=== PATIENT | female | born 1990 | race Hispanic/Latino ===

== ENCOUNTER 2018-09-16 12:49 | Emergency (ER) | payer BC ==
[2018-09-16 13:37] LABS: Urine Blood NEGATIVE (NEG); Urine Glucose NEGATIVE (NEG); Urine Protein NEGATIVE (NEG); Urine pH 7.5 (5.0-7.0)
[2018-09-16] MEDS ORDERED: ONDANSETRON 4 MG/2 ML VIAL ONE (13:55)
[2018-09-16] MEDS ORDERED: NA CHLORIDE 0.9% 1,000 ML ONE (13:55)
[2018-09-16] MEDS ORDERED: KETOROLAC 30 MG/ML INJ ONE (13:55)
[2018-09-16 14:30] LABS: Absolute Lymphocytes (CBC) 1.6 K/uL (0.7-4.9); Absolute Monocytes 0.4 K/uL (0.1-1.3); Absolute Neutrophil 5.6 K/uL (1.8-8.0); Basophils % 0.3 % (0-1.3); Eosinophils % 1.1 % (0-4.4); Hematocrit 43.4 % (36.0-45.0); Monocytes % 5.3 % (3.3-12.3); RBC Red Blood Cell Count 4.91 M/uL (3.86-4.86)
[2018-09-16 14:47] LABS: ALT/SGPT 19 U/L (12-78); AST/SGOT 10 U/L (15-37); Alkaline Phosphatase 102 U/L (45-117); BUN Blood Urea Nitrogen 12 mg/dL (7-18); Bicarbonate 30 mmol/L (21-32); Bilirubin Direct < 0.1 mg/dL (0-0.2); Bilirubin Total 0.2 mg/dL (0.2-1.0); Glucose Level 99 mg/dL (74-106); Lipase 130 U/L (73-393); Potassium 3.4 mmol/L (3.5-5.1); Protein, Total 8.4 g/dL (6.4-8.2); Sodium Level 139 mmol/L (136-145)
[2018-09-16] MEDS ORDERED: MORPHINE 4 MG/ML SYR ONE (15:13)
--- NOTE | 2018-09-16 15:31 | RAD REPORT ---
EXAM DESCRIPTION: CTAbdomen Pelvis W Contrast - 09/16/2018 3:23 pm CLINICAL HISTORY: Abdominal pain. iv contrast only;Abd pain COMPARISON: CT ABD PELVIS W CONTRAST dated 03/14/2013; CT ABD PELVIS W CONTRAST dated 03/12/2013; CT A BD PELVIS W CONTRAST dated 03/09/2013; CT ABD PELVIS W CONTRAST dated 02/12/2013 TECHNIQUE: Biphasic CT imaging of the abdomen and pelvis was performed with 100 ml non-ionic IV cont rast. All CT scans are performed using dose optimization technique as appropriate and may include automated exposure control or mA/KV adjustment according to patient size. FINDINGS: The lung bases are clear.Cholecystectomy clips. The liver, spleen, pancreas, adrenal glands and kidneys are within normal limits. No bowel obstruction, free air, intra-abdominal free fluid or abscess. The appendix is not identifie d as a discrete structure, however, no secondary findings of appendicitis are identified. No eviden ce of significant lymphadenopathy. No suspicious bony findings. Mild pelvic free fluid seen, likely physiologic. IMPRESSION: No acute intra-abdominal or pelvic finding.
--- NOTE | 2018-09-16 15:57 | ER ---
Nurse's Notes [facility] Name: Janeth Dior Age: 28 yrs Sex: Female : 1990 Arrival Date: 09/16/2018 Time: 12:51 Bed 27 Private MD: Keith Brock Diagnosis: Upper abdominal pain, unspecified Presentation: 09/16 12:52 Presenting complaint: Patient states: upper abd pain that radiates the mid back area. sv Back pain started a week ago and abd pain started today. Transition of care: patient was not received from another setting of care. Onset of symptoms was September 09, 2018. Care prior to arrival: None. 12:52 Method Of Arrival: Ambulatory sv 12:52 Acuity: KAM 3 sv 13:22 Risk Assessment: Do you want to hurt yourself or someone else? Patient reports no ca1 desire to harm self or others. Initial Sepsis Screen: Does the patient meet any 2 criteria? No. Patient's initial sepsis screen is negative. Does the patient have a suspected source of infection? No. Patient's initial sepsis screen is negative. Triage Assessment: 12:54 General: Appears in no apparent distress. uncomfortable, well developed, Behavior is sv calm, cooperative, appropriate for age. Pain: Complains of pain in right upper quadrant and left upper quadrant Pain radiates to mid back area Pain currently is 6 out of 10 on a pain scale. Quality of pain is described as sharp. Neuro: Level of Consciousness is awake, alert, obeys commands, Oriented to person, place, time, situation, Gait is steady. Respiratory: Respiratory effort is even, unlabored, Respiratory pattern is regular, symmetrical. 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 - Social history:: Smoking status: Patient/guardian denies using tobacco. - Ebola Screening: : No symptoms or risks identified at this time. Screenin:05 Abuse screen: Denies threats or abuse. Denies injuries from another. Nutritional ca1 screening: No deficits noted. Tuberculosis screening: No symptoms or risk factors identified. Fall Risk None identified. Assessment: 13:05 General: Appears in no apparent distress. comfortable, Behavior is calm, cooperative, ca1 appropriate for age. Pain: Complains of pain in back and mid back area Pain radiates to abdomen and left upper quadrant and right upper quadrant Pain currently is 8 out of 10 on a pain scale. Pain began 1 week ago. Pain: Is intermittent. Neuro: Level of Consciousness is awake, alert, obeys commands, Oriented to person, place, time, situation. Cardiovascular: Heart tones S1 S2 present Capillary refill < 3 seconds Patient's skin is warm and dry. Respiratory: Airway is patent Respiratory effort is even, unlabored, Respiratory pattern is regular, symmetrical, Breath sounds are clear bilaterally. GI: Abdomen is flat, non-distended, Bowel sounds present X 4 quads. Abd is soft X 4 quads Abdomen is tender to palpation in left upper quadrant and right upper quadrant Reports nausea, vomiting, since this morning. : No deficits noted. No signs and/or symptoms were reported regarding the genitourinary system. EENT: No deficits noted. No signs and/or symptoms were reported regarding the EENT system. Derm: Skin is intact, is healthy with good turgor, Skin is pink, warm \T\ dry. Musculoskeletal: Circulation, motion, and sensation intact. Capillary refill < 3 seconds. 14:01 Reassessment: Patient appears in no apparent distress at this time. Patient and/or ca1 family updated on plan of care and expected duration. Pain level reassessed. Patient is alert, oriented x 3, equal unlabored respirations, skin warm/dry/pink. 14:50 Reassessment: Reassessment: Patient appears in no apparent distress at this time. ca1 Patient is alert, oriented x 3, equal unlabored respirations, skin warm/dry/pink. 15:33 Reassessment: Patient appears in no apparent distress at this time. Patient is alert, ca1 oriented x 3, equal unlabored respirations, skin warm/dry/pink. Pt from CT scan. Patient states feeling better. 16:15 Reassessment: Patient appears in no apparent distress at this time. Patient is alert, ca1 oriented x 3, equal unlabored respirations, skin warm/dry/pink. Vital Signs: 12:53 BP 135 / 75; Pulse 96; Resp 20; Temp 98.9; Pulse Ox 100% ; Height 5 ft. 4 in. (162.56 sv cm); Pain 6/10; 14:00 BP 127 / 79; Pulse 80; Resp 19; Pulse Ox 100% on R/A; ca1 14:20 BP 120 / 71; Pulse 91; Resp 19; Pulse Ox 100% on R/A; ca1 15:34 BP 122 / 76; Pulse 86; Resp 19; Pulse Ox 99% on R/A; ca1 16:15 BP 119 / 64; Pulse 83; Resp 19; Pulse Ox 99% on R/A; ca1 ED Course: 12:51 Patient arrived in ED. mr 12:52 Keith Brock MD is Private Physician. mr 12:52 Triage completed. sv 12:53 Arm band placed on. sv 12:59 Jody Edwards FNP-C is PHCP. kb 12:59 Zeeshan Chen MD is Attending Physician. kb 13:04 Shi Gomez, CATE is Primary Nurse. ca1 13:05 Patient has correct armband on for positive identification. Placed in gown. Bed in low ca1 position. Call light in reach. Side rails up X 1. Pulse ox on. NIBP on. Warm blanket given. 13:57 Initial lab(s) drawn, by me, sent to lab. Inserted saline lock: 22 gauge in right lt1 antecubital area, using aseptic technique. 15:21 CT completed. Patient tolerated procedure well. Patient moved to CT. Patient moved back ne from CT. 15:23 CT Abd/Pelvis - W/Contrast In Process Unspecified. EDMS 16:24 No provider procedures requiring assistance completed. IV discontinued, intact, ca1 bleeding controlled, No redness/swelling at site. Pressure dressing applied. Administered Medications: 13:58 Drug: NS 0.9% 1000 ml Route: IV; Rate: 1000 ml; Site: right antecubital; ca1 15:05 Follow up: Urine output 350 ml; Response: No adverse reaction; IV Status: Completed ca1 infusion 13:59 Drug: Zofran 4 mg Route: IVP; Site: right antecubital; ca1 14:48 Follow up: Response: No adverse reaction; Nausea is decreased ca1 14:00 Drug: TORadol 30 mg Route: IVP; Site: right antecubital; ca1 14:48 Follow up: Response: No adverse reaction; Pain is unchanged, physician notified ca1 15:05 Drug: morphine 4 mg Route: IVP; Site: right antecubital; ca1 15:32 Follow up: Response: No adverse reaction; Pain is decreased ca1 16:08 Drug: Flexeril 10 mg Route: PO; ca1 16:22 Follow up: Response: Medication administered at discharge. ca1 Output: 15:05 Urine: 350ml; Total: 350ml. ca1 Outcome: 15:57 Discharge ordered by MD. peguero 16:24 Discharged to home ambulatory, with significant other. ca1 16:24 Condition: stable 16:24 Discharge instructions given to patient, Instructed on discharge instructions, follow up and referral plans. medication usage, Demonstrated understanding of instructions, follow-up care, medications, Prescriptions given X 2. 16:25 Patient left the ED. ca1 Signatures: Dispatcher [employer] EDMS Jody Edwards, RADHA COSMEP-Tamar Solo, RN RN sv Garcia, Ivy mr Chiki, Shi Patel RN RN ca1 Audrey, Debbie lt1 Corrections: (The following items were deleted from the chart) 12:54 12:53 Pulse 96bpm; Resp 20bpm; Pulse Ox 100%; Temp 98.9F; Height 5 ft. 4 in.; Pain sv 6/10; sv 15:34 14:48 Reassessment: ca1 ca1 15:34 14:48 Reassessment: ca1 ca1
--- NOTE | 2018-09-16 15:57 | EDPHYS ---
Physician Documentation [facility] Name: Janeth Dior Age: 28 yrs Sex: Female : 1990 Arrival Date: 09/16/2018 Time: 12:51 Bed 27 Private MD: Keith Brock ED Physician Zeeshan Chen HPI: 09/16 15:10 This 28 yrs old Female presents to ER via Ambulatory with complaints of kb Abdominal Pain, Back Pain. 15:10 The patient presents with abdominal pain in the upper abdomen. Onset: The kb symptoms/episode began/occurred this morning. The symptoms do not radiate. Associated signs and symptoms: Pertinent positives: nausea, Pertinent negatives: diarrhea, fever, vomiting. The symptoms are described as constant. Modifying factors: The symptoms are alleviated by nothing, the symptoms are aggravated by nothing. Severity of pain: At its worst the pain was mild moderate in the emergency department the pain is unchanged. The patient has not experienced similar symptoms in the past. The patient has not recently seen a physician. 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 - Social history:: Smoking status: Patient/guardian denies using tobacco. - Ebola Screening: : No symptoms or risks identified at this time. ROS: 15:09 Constitutional: Negative for fever, chills, and weight loss, Cardiovascular: Negative kb for chest pain, palpitations, and edema, Respiratory: Negative for shortness of breath, cough, wheezing, and pleuritic chest pain, : Negative for injury, bleeding, discharge, and swelling, MS/Extremity: Negative for injury and deformity, Skin: Negative for injury, rash, and discoloration, Neuro: Negative for headache, weakness, numbness, tingling, and seizure. 15:09 Abdomen/GI: Positive for abdominal pain, nausea, Negative for vomiting, diarrhea, constipation. 15:09 Back: Positive for pain at rest, of the mid back area. Exam: 15:09 Constitutional: This is a well developed, well nourished patient who is awake, alert, kb and in no acute distress. Head/Face: Normocephalic, atraumatic. Chest/axilla: Normal chest wall appearance and motion. Nontender with no deformity. No lesions are appreciated. Cardiovascular: Regular rate and rhythm with a normal S1 and S2. No gallops, murmurs, or rubs. Normal PMI, no JVD. No pulse deficits. Respiratory: Lungs have equal breath sounds bilaterally, clear to auscultation and percussion. No rales, rhonchi or wheezes noted. No increased work of breathing, no retractions or nasal flaring. Back: No spinal tenderness. No costovertebral tenderness. Full range of motion. Skin: Warm, dry with normal turgor. Normal color with no rashes, no lesions, and no evidence of cellulitis. MS/ Extremity: Pulses equal, no cyanosis. Neurovascular intact. Full, normal range of motion. Neuro: Awake and alert, GCS 15, oriented to person, place, time, and situation. Cranial nerves II-XII grossly intact. Motor strength 5/5 in all extremities. Sensory grossly intact. Cerebellar exam normal. Normal gait. 15:09 Abdomen/GI: Inspection: abdomen appears normal, Bowel sounds: normal, in all quadrants, Palpation: soft, in all quadrants, mild abdominal tenderness, in the right upper quadrant and left upper quadrant. Vital Signs: 12:53 BP 135 / 75; Pulse 96; Resp 20; Temp 98.9; Pulse Ox 100% ; Height 5 ft. 4 in. (162.56 sv cm); Pain 6/10; 14:00 BP 127 / 79; Pulse 80; Resp 19; Pulse Ox 100% on R/A; ca1 14:20 BP 120 / 71; Pulse 91; Resp 19; Pulse Ox 100% on R/A; ca1 15:34 BP 122 / 76; Pulse 86; Resp 19; Pulse Ox 99% on R/A; ca1 16:15 BP 119 / 64; Pulse 83; Resp 19; Pulse Ox 99% on R/A; ca1 MDM: 12:59 Patient medically screened. kb 15:08 Data reviewed: vital signs, nurses notes. Data interpreted: Pulse oximetry: on room air kb is 100 %. Interpretation: normal. 15:56 Counseling: I had a detailed discussion with the patient and/or guardian regarding: the kb historical points, exam findings, and any diagnostic results supporting the discharge/admit diagnosis, lab results, radiology results, the need for outpatient follow up, a family practitioner, to return to the emergency department if symptoms worsen or persist or if there are any questions or concerns that arise at home. 09/16 13:17 Order name: Basic Metabolic Panel; Complete Time: 14:50 kb 09/16 13:17 Order name: CBC with Diff; Complete Time: 14:47 kb 09/16 13:17 Order name: Hepatic Function; Complete Time: 14:50 kb 09/16 13:17 Order name: Lipase; Complete Time: 14:50 kb 09/16 13:21 Order name: Urine Dipstick--Ancillary (enter results); Complete Time: 13:38 bd 09/16 13:21 Order name: Urine --Ancillary (enter results); Complete Time: 13:38 bd 09/16 13:17 Order name: IV Saline Lock; Complete Time: 13:42 kb 09/16 13:17 Order name: Labs collected and sent; Complete Time: 13:42 kb 09/16 14:51 Order name: CT Abd/Pelvis - W/Contrast; Complete Time: 15:34 kb 09/16 13:17 Order name: Urine Dipstick-Ancillary (obtain specimen); Complete Time: 13:41 kb Administered Medications: 13:58 Drug: NS 0.9% 1000 ml Route: IV; Rate: 1000 ml; Site: right antecubital; ca1 15:05 Follow up: Urine output 350 ml; Response: No adverse reaction; IV Status: Completed ca1 infusion 13:59 Drug: Zofran 4 mg Route: IVP; Site: right antecubital; ca1 14:48 Follow up: Response: No adverse reaction; Nausea is decreased ca1 14:00 Drug: TORadol 30 mg Route: IVP; Site: right antecubital; ca1 14:48 Follow up: Response: No adverse reaction; Pain is unchanged, physician notified ca1 15:05 Drug: morphine 4 mg Route: IVP; Site: right antecubital; ca1 15:32 Follow up: Response: No adverse reaction; Pain is decreased ca1 16:08 Drug: Flexeril 10 mg Route: PO; ca1 16:22 Follow up: Response: Medication administered at discharge. ca1 Disposition: 09/17 07:20 Co-signature as Attending Physician, Zeeshan Chen MD I agree with the assessment and sher plan of care. Disposition: 09/16/18 15:57 Discharged to Home. Impression: Upper abdominal pain, unspecified. - Condition is Stable. - Discharge Instructions: Abdominal Pain, Adult, [id number], Back Pain, Adult, [id number]. - Prescriptions for Cyclobenzaprine 10 mg Oral Tablet - take 1 tablet by ORAL route every 8 hours As needed; 21 tablet. Diclofenac Sodium 75 mg Oral Tablet, Delayed Release (E.C.) - take 1 tablet by ORAL route 2 times per day As needed; 30 tablet. - Medication Reconciliation Form, Thank You Letter, Antibiotic Education, Prescription Opioid Use, Work release form form. - Follow up: Emergency Department; When: As needed; Reason: Worsening of condition. Follow up: Private Physician; When: 2 - 3 days; Reason: Recheck today's complaints, Continuance of care, Re-evaluation by your physician. Signatures: Dispatcher [employer] EDJody Black, [facility] RECEPTIONIST-Tamar Solo RN RN Zeeshan Lew MD MD cha Acob, Shi RN RN ca1 Corrections: (The following items were deleted from the chart) 09/16 16:25 15:57 09/16/2018 15:57 Discharged to Home. Impression: Upper abdominal pain, ca1 unspecified. Condition is Stable. Forms are Medication Reconciliation Form, Thank You Letter, Antibiotic Education, Prescription Opioid Use. Follow up: Emergency Department; When: As needed; Reason: Worsening of condition. Follow up: Private Physician; When: 2 - 3 days; Reason: Recheck today's complaints, Continuance of care, Re-evaluation by your physician. kb
[2018-09-16] MEDS ORDERED: CYCLOBENZAPRINE 10 MG TAB ONE (16:28)
[2018-09-16 17:17] VITALS: TEMP 98.9
[2018-09-16 17:21] VITALS: O2SAT 99
[2018-09-16 17:23] VITALS: BP 119/64
== END 2018-09-16 16:25 | disposition home or self-care (01) ==
LOC: ER 12:49
DX: R10.9 Unspecified abdominal pain (principal)
CPT/HCPCS: 36415; 74177; 80048; 80076; 81003; 81025; 83690; 85025; 96361; 96374; 96375; 99284; J2405; J7030; Q9967